=== PATIENT | male | born 1985 | race Caucasian/White ===

== ENCOUNTER 2019-01-28 17:21 | Emergency (ER) | payer MEDICAID ==
[~2019-01-28] VITALS: Ht 167.6 cm; Wt 74.8 kg
[2019-01-28 17:30] VITALS: BP_SYST 138
--- NOTE | 2019-01-28 17:30 | NUR ---
Patient to ER bed 7 to gown for evaluation. Side rails up. Report given to CESAR Brizuela.
--- NOTE | 2019-01-28 17:32 | NUR ---
Patient arrived via POV, AAOx4, and ambulatory with steady gait. Patient c/c of bleeding from urethra. Patient states he masturbated this morning, upon ejaculation he had a pinching type of sensation midway down shaft. Patient states several hours later he went to urinate and he noticed clots and blood in his urine. Patient states since, he has had blood oozing from urethra. Patient states no new sexual partners, no other drainage. Patient states no burning upon urination. Will continue to follow up and monitor.
--- NOTE | 2019-01-28 17:35 | NUR ---
ER at bedside examining patient.
[2019-01-28 18:08] LABS: BASOPHILS # (AUTO) 0.1 K/uL (0.0-0.2); BASOPHILS % (AUTO) 1.8 % (0.0-2.0); EOSINOPHILS # (AUTO) 0.2 K/uL (0.0-0.4); EOSINOPHILS % (AUTO) 2.2 % (0.0-4.0); HEMATOCRIT 46.3 % (36-54); HEMOGLOBIN 15.5 g/dL (14.0-18.0); LYMPHOCYTES # (AUTO) 1.5 K/uL (1.0-5.5); LYMPHOCYTES % (AUTO) 21.4 % (20.5-51.5); MEAN CORPUSCULAR HEMOGLOBIN 31 pg (27-31); MEAN CORPUSCULAR HGB CONC 34 % (32-36); MEAN CORPUSCULAR VOLUME 91 fL (79.0-98.0); MONOCYTES # (AUTO) 0.6 K/uL (0.0-1.0); MONOCYTES % (AUTO) 8.3 % (1.7-9.3); NEUTROPHILS # (AUTO) 4.7 K/uL (1.8-7.7); NEUTROPHILS % (AUTO) 66.3 % (40.0-70.0); PLATELET COUNT (AUTO) 195 K/uL (130-430); RED BLOOD CELL COUNT(AUTO) 5.07 MIL/uL (4.2-6.2); RED CELL DISTRIBUTION WIDTH 13.4 % (9.0-15.0); WHITE BLOOD COUNT (AUTO) 7.1 K/uL (4.8-10.8)
[2019-01-28 18:24] LABS: CALCIUM 9.7 mg/dL (8.4-11.0); CREATININE 1.07 mg/dL (0.55-1.30); POTASSIUM 3.7 mmol/L (3.5-5.1)
[2019-01-28 18:29] LABS: ALBUMIN 4.3 g/dL (3.4-4.8); PROTHROMBIN TIME 10.1 SECS (9.5-12.5); TOTAL BILIRUBIN 0.4 mg/dL (0.0-1.0)
[2019-01-28 19:20] VITALS: BP_SYST 138
--- NOTE | 2019-01-28 19:20 | NUR ---
Patient given written and verbal discharge instructions and verbalizes understanding. ER MD discussed with patient the results and treatment provided. Patient in stable condition. ID arm band removed. Patient educated on pain management and to follow up with PMD. Pain Scale 0/10 Opportunity for questions provided and answered.
== END 2019-01-28 19:20 | disposition home or self-care (01) ==
LOC: SED 17:21
DX: R31.9 Hematuria, unspecified (principal); Z91.018 Allergy to other foods
CPT/HCPCS: 36415; 80053; 81002; 82150-TC; 83690-TC; 85025; 85610-TC; 85730-TC; 99284